=== PATIENT | male | born 1965 | race Caucasian/White ===

== ENCOUNTER 2024-05-26 08:58 | Inpatient (IN) | payer MEDICARE, OTHER ==
[~2024-05-26] VITALS: Ht 175.3 cm; Wt 114.7 kg
[~2024-05-26 08:58] MED LIST: FURO40TA4 PO; NOR10T GT
--- NOTE | 2024-05-26 09:15 | ED.PDOC ---
SOB-HPI HPI Comments 58 year old male presents to the ED with chief complaint of SOB. Patient reports that he has been experiencing SOB with associated non-productive cough, bilateral leg swelling and redness for the past 4 days. Patient relays that he has been taking cold medicine with no relief noted. Patient states he has had an open wound to his right lower leg for the past 18 years, only keeping it wrapped, but was told he needed his leg amputated a long time ago. Patient denies any chest pain, dizziness, N/V/D, fever, chills, or numbness. Time Seen by MD: 09:08 Primary Care Provider: NONE Reviewed notes: Nurses Notes, Medications, Allergies Information Source: Patient Mode of Arrival: Ambulatory Severity: Moderate Timing: Days Duration: Since onset Context: At Rest, With Light Exertion PE Risk Factors: None History of: COPD, CHF Prehospital treatment: Other (Cold medicine) Modifying Factors: Exertion Associated Signs and Symptoms: Cough, Leg Swelling If cough with SOB: Non-Productive Past Medical History PAST MEDICAL HISTORY: CHF, CKF, COPD, HTN, Denies Surgical History: Denies all surgeries Family History Family History: Reviewed,noncontributory to illness, Unobtainable Social History Smoker: Cigarettes Alcohol: Denies ETOH Use Drugs: Denies Drug Use Lives In: Home Constitutional: denies: chills, diaphoresis, fatigue, fever, malaise, sweats, weakness, others EENTM: denies: blurred vision, double vision, ear bleeding, ear discharge, ear drainage, ear pain, ear ringing, eye pain, eye redness, hearing loss, mouth pain, mouth swelling, nasal discharge, nose bleeding, nose congestion, nose pain, photophobia, tearing, throat pain, throat swelling, voice changes, others Respiratory: reports: cough, shortness of breath, SOB with excertion; denies: hemoptysis, orthopnea, SOB at rest, stridor, wheezing, others Cardiovascular: reports: edema; denies: chest pain, dizzy spells, diaphoresis, Dyspnea on exertion, irregular heart beat, left arm pain, lightheadedness, palpitations, PND, syncope, others Gastrointestinal: denies: abdomen distended, abdominal pain, blood streaked bowels, constipated, diarrhea, dysphagia, difficulty swallowing, hematemesis, melena, nausea, poor appetite, poor fluid intake, rectal bleeding, rectal pain, vomiting, others Genitourinary: denies: burning, dysuria, flank pain, frequency, hematuria, incontinence, penile discharge, penile sore, pain, testicle pain, testicle swelling, urgency, others Neurological: denies: dizziness, fainting, headache, left sided numbness, left sided weakness, numbness, paresthesia, pre-existing deficit, right sided numbness, right sided weakness, seizure, speech problems, tingling, tremors, weakness, others Musculoskeletal: denies: back pain, gout, joint pain, joint swelling, muscle pain, muscle stiffness, neck pain, others Integumetry: reports: rash (Bilateral legs), wounds (Left leg wound); denies: bruises, change in color, change in hair/nails, dryness, laceration, lesions, lumps, others Allergic/Immunocompromised: denies: Difficulty Healing, Frequent Infections, Hives, Itching, others Hematologic/Lymphatic: denies: anemia, blood clots, easy bleeding, easy bruising, swollen glands, others Endocrine: denies: excessive hunger, excessive sweating, excessive thirst, excessive urination, flushing, intolerance to cold, intolerance to heat, unexplained weight gain, unexplained weight loss, others Psychiatric: denies: anxiety, bipolar disorder, depression, hopeless, panic disorder, schizophrenia, sleepless, suicidal, others All Other Systems: Reviewed and Negative Physical Exam General Appearance: No Apparent Distress, Normal, Other (Ill-appearing) HEENT: Normal ENT Inspection, PERRL/EOMI Neck: Full Range of Motion, Non-Tender, Normal, Normal Inspection Respiratory: Chest Non-Tender, Lungs Clear, No Accessory Muscle Use, Other (Non-productive cough, coarse breath sounds, tachypneic) Cardiovascular: No Edema, No JVD, No Murmur, No Gallop, Normal Peripheral Pulses, Tachycardia Breast Exam: Deferred Gastrointestinal: No Organomegaly, Non Tender, No Pulsatile Mass, Normal Bowel Sounds, Soft Genitalia: Deferred Pelvic: Deferred Rectal: Deferred Extremities: No calf tenderness, Normal capillary refill, Normal range of motion, Non-tender, Other (2+ pitting edema to bilateral lower extremities, Diffuse erythema to bilateral lower extremities.) Musculoskeletal : Apperance: Normal Neurologic: Alert, quality lead II-XII nml as Tested, No Motor Deficits, Normal Affect, Normal Mood, No Sensory Deficits Cerebellar Function: Normal Reflexes: Normal Skin: Dry, Normal Color, Warm Lymphatic: No Adenopathy Was a procedure done? Was a procedure done?: No Differential Dx Differential Diagnosis: Cardiogenic Shock, CHF, COPD, Hypertension, Hyperventilation, Panic Attack, PSVT, Pulmonary Embolism X-Ray, Labs, Meds, VS Vital Signs Date Time Temp Pulse Resp B/P (MAP) Pulse Ox O2 Delivery O2 Flow Rate FiO2 05/26/24 09:40 24 93 Room Air* 0 21 05/26/24 09:10 115 05/26/24 09:05 97.9 52 28 155/105 (122) 93 145/101 (116) Lab Test 05/26/24 10:55 05/26/24 10:00 Range/Units Troponin I High Sensitivity Pending 203 *H </=54 ng/L White Blood Count 10.9 H 4.4-10.8 10^3/uL Red Blood Count 5.07 4.5-5.90 10^6/uL Hemoglobin 15.0 13.5-17.5 g/dL Hematocrit 46.3 41.0-53.0 % Mean Corpuscular Volume 91.2 80.0-100.0 fL Mean Corpuscular Hemoglobin 29.6 28.0-32.0 pg Mean Corpuscular Hemoglobin Concent 32.5 32.0-36.0 g/dL Red Cell Distribution Width 14.1 11.8-14.3 % Platelet Count 306 140-450 10^3/uL Mean Platelet Volume 7.6 6.9-10.8 fL Neutrophils (%) (Auto) 85.1 H 37.0-80.0 % Lymphocytes (%) (Auto) 6.7 L 10.0-50.0 % Monocytes (%) (Auto) 7.0 0.0-12.0 % Eosinophils (%) (Auto) 0.3 0.0-7.0 % Basophils (%) (Auto) 0.9 0.0-2.0 % Neutrophils # (Auto) 9.2 H 1.6-8.6 10 ^3/uL Lymphocytes # (Auto) 0.7 0.4-5.4 10 ^3/uL Monocytes # (Auto) 0.8 0-1.3 10 ^3/uL Eosinophils # (Auto) 0 0-0.8 10 ^3/uL Basophils # (Auto) 0.1 0-0.2 10 ^3/uL Nucleated Red Blood Cells 0.0 % Sodium Level 135 L 136-145 mmol/L Potassium Level 4.7 3.5-5.1 mmol/L Chloride Level 102 98-107 mmol/L Carbon Dioxide Level 27 20-31 mmol/L Anion Gap 6 5-15 Blood Urea Nitrogen 24 H 9-23 mg/dL Creatinine 1.23 0.700-1.30 mg/dL Glomerular Filtration Rate Calc 69 >90 mL/min BUN/Creatinine Ratio 19.5 10.0-20.0 Serum Glucose 152 H 74-106 mg/dL Lactic Acid Level 1.5 0.4-2.0 mmol/L Calcium Level 10.0 8.7-10.4 mg/dL B-Type Natriuretic Peptide Pending Current Medications Medications (Trade) Dose Ordered Sig/Rosalie Route Start Time Stop Time Status Last Admin Albuterol (Ventolin Medneb) 5 mg ONCE ONCE NEB 05/26/24 09:15 05/26/24 09:16 DC 05/26/24 09:40 Ipratropium [place] (Atrovent Medneb) 0.5 mg ONCE ONCE NEB 05/26/24 09:15 05/26/24 09:16 DC 05/26/24 09:39 Time of 1ST Reevaluation: 10:08 Reevaluation 1ST: Unchanged Patient Education/Counseling: Diagnosis, Treatment Family Education/Counseling: No Family Present Departure 1 Departure Time of Disposition: 11:06 (Patient presented with chest pain that was concerning for possible STEMI, ACS, PE, Pneumonia, Muscle Strain, COPD, Dissection. Data: 1. I ordered and reviewed the result of at least 3 labs including a CBC, BMP, and Troponin. 2. I independently interpreted the following tests: EKG which shows sinus tachycardia and Chest X-ray which shows pulmonary vascular congestion.Risk:This patient has a high risk of morbidity due to further diagnostic testing or treatment and may suffer from an acute cardiac or respiratory disorder. Workup reveals concern for CHF exacerbation or NSTEMI and patient should be admitted for further workup and possible expert consultation. ) Impression: Primary Impression: Acute chest pain Additional Impressions: Elevated troponin Acute on chronic heart failure with reduced ejection fraction (HFrEF, <= 40%) and combined systolic and diastolic dysfunction Acute respiratory distress Disposition: ADMITTED INPATIENT Admit to: Tele Condition: Guarded Critical Care Note Critical Care Time?: Yes Critical care comment: Respiratory distress Authorized and Performed by: Koko Downs MD Total critical care time: Approximately 42 minutes Due to a high probability of clinically significant, life threatening deterioration, the patient required my highest level of preparedness to intervene emergently and I personally spent this critical care time directly and personally managing the patient. This critical care time included obtaining a history; examining the patient; pulse oximetry; ordering and review of studies; arranging urgent treatment with development of a management plan; evaluation of patient's response to treatment; frequent reassessment; and, discussions with other providers. This critical care time was performed to assess and manage the high probability of imminent, life-threatening deterioration that could result in multi-organ failure. It was exclusive of separately billable procedures and treating other patients and teaching time. Please see my other sections and the rest of the note for further information on patient assessment and treatment. Stability Stability form required: No Heart Score Heart Score: Heart Score Response (Comments) Value History N/A 0 EKG N/A 0 Age N/A 0 Risk Factors N/A 0 Troponin N/A 0 Total 0 I personally scribed for KOKO DOWNS MD ([email or web address]) on 05/26/24 at 09:15. Electronically submitted by Manuel Beck ([email or web address]). KOKO DOWNS MD May 26, 2024 09:15
[2024-05-26] MEDS: IPRATROPIUM BROM 0.5 MG/2.5ML INH SOL NEB ONE (09:39)
[2024-05-26 09:40] VITALS: BP 161/98; PULSE 116; RESP 24; TEMP 97.8; O2SAT 93
[2024-05-26] MEDS: ALBUTEROL SULF 2.5 MG/0.5ML(0.5%) NEB SOLN NEB ONE (09:40)
[2024-05-26 10:32] LABS: Basophils # (auto) 0.1 10 ^3/uL (0-0.2); Basophils % (auto) 0.9 % (0.0-2.0); Eosinophils # (auto) 0 10 ^3/uL (0-0.8); Eosinophils % (auto) 0.3 % (0.0-7.0); Hematocrit 46.3 % (41.0-53.0); Lymphocytes # (auto) 0.7 10 ^3/uL (0.4-5.4); Lymphocytes % (auto) 6.7 % (10.0-50.0); Mean Corpuscular Hemoglobin 29.6 pg (28.0-32.0); Mean Corpuscular Hgb Conc. 32.5 g/dL (32.0-36.0); Mean Corpuscular Volume 91.2 fL (80.0-100.0); Monocytes # (auto) 0.8 10 ^3/uL (0-1.3); Neutrophils # (auto) 9.2 10 ^3/uL (1.6-8.6); Neutrophils % (auto) 85.1 % (37.0-80.0); Platelet Count (auto) 306 10^3/uL (140-450); Red Blood Cells 5.07 10^6/uL (4.5-5.90); Red Cell Distribution Width 14.1 % (11.8-14.3); White Blood Cell 10.9 10^3/uL (4.4-10.8)
[2024-05-26 10:37] LABS: Chloride 102 mmol/L (98-107); Potassium 4.7 mmol/L (3.5-5.1); Sodium 135 mmol/L (136-145)
[2024-05-26 10:38] LABS: Anion Gap 6 (5-15); Carbon Dioxide 27 mmol/L (20-31)
--- NOTE | 2024-05-26 10:40 | DVH ---
XY CHEST PORTABLE, HISTORY: sob COMPARISON: None None TECHNICAL DATA: 1 view of the chest was obtained. FINDINGS: Lines and tubes: None Cardiomediastinal silhouette: normal Pulmonary vasculature: prominent Lung expansion: normal Lung airspace: normal Lung interstitium: normal Pleura: normal Pneumothorax: no Bones: Unremarkable Other: no IMPRESSION: Mild pulmonary congestion.
[2024-05-26 10:43] LABS: BUN/Creatinine Ratio 19.5 (10.0-20.0); Blood Urea Nitrogen 24 mg/dL (9-23); Glucose 152 mg/dL (74-106)
[2024-05-26] MEDS ORDERED: NITROGLYCERIN 0.4 MG SL TAB SL PRN (11:15)
[2024-05-26] MEDS ORDERED: MORPHINE SULFATE INJ 2 MG/ml SYRG IV PRN (11:15)
[2024-05-26] MEDS ORDERED: HYDROcodone-ACET 10/325MG TAB PO PRN (11:15)
[2024-05-26] MEDS ORDERED: ONDANSETRON HCL 4 MG/2 ML VIAL IV PRN (11:15)
[2024-05-26] MEDS ORDERED: DEXTROSE (50%) 50ML SYRG IV PRN (11:30)
[2024-05-26] MEDS: ASPirin 325 MG TAB PO ONE (12:12)
[2024-05-26] MEDS: MAALOX PLUS or MAALOX 30 ML PO ONE (12:13)
[2024-05-26] MEDS: AZITHROMYCIN 250 MG TAB PO ONE (12:13)
[2024-05-26 15:40] VITALS: PULSE 111; RESP 33; O2SAT 97
[2024-05-26] MEDS: CLOPIDOGREL BISULFATE 75 MG TAB PO ONE (16:00)
[2024-05-26] MEDS: ACCU-CHEK COMFORT CURVE STRIP VI SCH (16:00)
[2024-05-26] MEDS: ONDANSETRON HCL 4 MG/2 ML VIAL IV ONE (16:00)
[2024-05-26] MEDS: InsuLIN REG 1unit/0.01ml Soln (100units/ml) SC SCH (16:00)
[2024-05-26] MEDS: FUROSEMIDE 40 MG/4 ML VIAL IV ONE (16:01)
[2024-05-26] MEDS: ACETAMINOPHEN 325 MG TAB PO ONE (16:03)
[2024-05-26] MEDS: cefTRIAXone 1GM/50ML D5W 50 ML IV SCH (16:06)
[2024-05-26 16:19] LABS: Rapid Influenza A Negative (Negative); Rapid Influenza B Negative (Negative)
[2024-05-26 16:20] LABS: COVID19 ANTIGEN SOFIA FIA NEGATIVE (NEGATIVE)
[2024-05-26 19:30] VITALS: PULSE 109; RESP 31; O2SAT 95
--- NOTE | 2024-05-26 19:31 | ECG ---
[facility] Test Date: 2024-05-26 Test Time: 09:10:58 Pat Name: RAH MEIER Department: er Room: 0286T Gender: M [employer]: ig : [id number] Requested By: KOKO FATIMA Order Number: [id number] Reading MD: Jhon Monreal Measurements Intervals [place] Rate: 115 P: 57 NM: 152 QRS: -58 QRSD: 121 T: 94 QT: 348 QTc: 482 Interpretive Statements Sinus tachycardia Probable left atrial enlargement Left bundle branch block Electronically Signed On 05-28-2024 17:33:54 PST by Jhon Monreal Please click the below link to view image of tracing.
[2024-05-26 20:17] VITALS: PULSE 108; RESP 27; O2SAT 93
[2024-05-26] MEDS: ALBUTEROL SULF 2.5 MG/0.5ML(0.5%) NEB SOLN NEB PRN (20:17)
[2024-05-26] MEDS: IPRATROPIUM BROM 0.5 MG/2.5ML INH SOL NEB PRN (20:17)
[2024-05-26 20:27] VITALS: PULSE 108; RESP 18; O2SAT 97
[2024-05-26] MEDS: HYDROcodone-ACET 10/325MG TAB PO PRN (21:31)
[2024-05-26] MEDS: FUROSEMIDE 40 MG/4 ML VIAL IV SCH (21:38)
[2024-05-26] MEDS: ATORVASTATIN 20 MG TAB PO SCH (21:38)
[2024-05-26] MEDS: ENOXAPARIN SOD 120 MG/0.8 ML SYRINGE SC SCH (21:41)
[2024-05-26] MEDS: LORazepam 0.5 MG TAB PO PRN (21:41)
[2024-05-26] MEDS: CARVEDILOL 3.125 MG TAB PO SCH (22:00)
[2024-05-26] MEDS ORDERED: ENOXAPARIN SOD 100 MG/1 ML SYRINGE SC SCH (22:00)
[2024-05-26] MEDS: ZOLPIDEM TARTRATE 5 MG TAB PO PRN (22:35)
[2024-05-26 22:55] VITALS: BP 140/101; PULSE 104; PULSE 108; RESP 19; RESP 36; TEMP 98; O2SAT 93
[2024-05-26] MEDS: ACETAMINOPHEN 325 MG TAB PO PRN (23:37)
[2024-05-27] VITALS (12 sets, daily range): BP systolic 126–152; BP diastolic 83–102; PULSE 64–110; RESP 17–25; TEMP 97.5–100.1; O2SAT 91–100
[2024-05-27 06:39] LABS: Basophils # (auto) 0.1 10 ^3/uL (0-0.2); Basophils % (auto) 1.1 % (0.0-2.0); Eosinophils # (auto) 0.1 10 ^3/uL (0-0.8); Eosinophils % (auto) 0.6 % (0.0-7.0); Hematocrit 40.4 % (41.0-53.0); Hemoglobin 13.5 g/dL (13.5-17.5); Lymphocytes # (auto) 0.8 10 ^3/uL (0.4-5.4); Lymphocytes % (auto) 9.4 % (10.0-50.0); Mean Corpuscular Hemoglobin 29.8 pg (28.0-32.0); Mean Corpuscular Hgb Conc. 33.3 g/dL (32.0-36.0); Mean Corpuscular Volume 89.4 fL (80.0-100.0); Monocytes # (auto) 0.8 10 ^3/uL (0-1.3); Monocytes % (auto) 9.4 % (0.0-12.0); Neutrophils # (auto) 6.6 10 ^3/uL (1.6-8.6); Neutrophils % (auto) 79.5 % (37.0-80.0); Nucleated Red Blood Cells % 0.1 %; Platelet Count (auto) 286 10^3/uL (140-450); Red Blood Cells 4.52 10^6/uL (4.5-5.90); Red Cell Distribution Width 14.1 % (11.8-14.3); White Blood Cell 8.3 10^3/uL (4.4-10.8)
[2024-05-27 06:51] LABS: Anion Gap 6 (5-15); Calcium 9.5 mg/dL (8.7-10.4); Carbon Dioxide 27 mmol/L (20-31); Chloride 104 mmol/L (98-107); Potassium 4.1 mmol/L (3.5-5.1); Sodium 137 mmol/L (136-145)
[2024-05-27 06:57] LABS: BUN/Creatinine Ratio 22.4 (10.0-20.0); Blood Urea Nitrogen 26 mg/dL (9-23); Glucose 139 mg/dL (74-106)
[2024-05-27] MEDS: ASPirin 81 mg TAB PO SCH (09:35)
[2024-05-27] MEDS: DOCUSATE SOD 100 MG CAP PO SCH (09:35)
[2024-05-27] MEDS: CLOPIDOGREL BISULFATE 75 MG TAB PO SCH (09:41)
[2024-05-27] MEDS ORDERED: AZITHROMYCIN 250 MG TAB PO SCH (10:00)
[2024-05-27] MEDS ORDERED: SPIR25TA8 PO (10:01)
[2024-05-27] MEDS ORDERED: ATOR-507 PO (10:01)
[2024-05-27] MEDS ORDERED: CARV6.2551 PO (10:01)
[2024-05-27] MEDS: LISINOPRIL 5 MG TAB PO SCH (10:17)
[2024-05-27 11:54] LABS: Magnesium 2.1 mg/dL (1.6-2.6)
--- NOTE | 2024-05-27 13:25 | DVHPN2 ---
Reviewed: Care Plan, H&P, Labs, Medications, Previous Orders, Radiology Changes from previous H/P or p: No Changes Objective Vitals Vital Signs Date Time Temp Pulse Resp B/P (MAP) Pulse Ox O2 Delivery O2 Flow Rate FiO2 05/27/24 10:39 88 134/85 05/27/24 09:27 24 100 05/27/24 09:21 Nasal Cannula* 3 32 05/27/24 09:00 97.5 97.5 Intake/Output Intake and Output 05/27/24 07:00 Intake Total 550 ml Output Total 800 ml Balance -250 ml Intake Oral 500 ml IV Total 50 ml Output Urine Total 800 ml # Voids 2 Medications Current Medications Medications Dose Ordered Sig/Rosalie Route Start Time Stop Time Status Last Admin Dose Admin Aspirin 81 mg DAILY PO 05/27/24 10:00 05/27/24 09:35 81 MG Clopidogrel Bisulfate 75 mg DAILY PO 05/27/24 10:00 05/27/24 09:41 75 MG Atorvastatin Calcium 80 mg HS PO 05/26/24 22:00 05/26/24 21:38 80 MG Carvedilol 6.25 mg Q12HR PO 05/26/24 22:00 05/27/24 09:39 6.25 MG Acetaminophen 650 mg Q6HP PRN PO 05/26/24 11:15 05/26/24 23:37 650 MG Zolpidem Tartrate 5 mg QHSP PRN PO 05/26/24 11:15 05/26/24 22:35 5 MG Lorazepam 0.5 mg Q6HP PRN PO 05/26/24 11:15 05/26/24 21:41 0.5 MG Docusate Sodium 100 mg DAILY PO 05/27/24 10:00 05/27/24 09:35 100 MG Enoxaparin Sodium 100 mg Q12HR SC 05/26/24 22:00 UNV Ondansetron HCl 4 mg Q4HP PRN IV 05/26/24 11:15 Lisinopril 10 mg DAILY PO 05/27/24 10:00 05/27/24 10:17 10 MG Nitroglycerin 0.4 mg Q5MINP PRN SL 05/26/24 11:15 Morphine Sulfate 2 mg Q30M PRN IV 05/26/24 11:15 Ceftriaxone Sodium 50 ml @ 100 mls/hr DAILY IV 05/26/24 11:15 05/27/24 09:42 100 MLS/HR Furosemide 40 mg BID IV 05/26/24 22:00 05/27/24 09:40 40 MG Azithromycin 500 mg DAILY PO 05/27/24 10:00 Hold Albuterol 2.5 mg Q4HWA PRN NEB 05/26/24 11:15 05/27/24 09:21 2.5 MG Ipratropium [place] 0.5 mg Q4HWA PRN NEB 05/26/24 11:15 05/27/24 09:20 0.5 MG Diagnostic Test (Pha) 1 strip IQ4HR 05/26/24 12:00 05/27/24 11:52 1 STRIP Insulin Human Regular IQ4HR SC 05/26/24 12:00 05/27/24 11:51 3 UNITS Dextrose 50 ml UD PRN IV 05/26/24 11:30 Enoxaparin Sodium 110 mg Q12HR SC 05/26/24 22:00 05/27/24 11:14 110 MG Acetaminophen/ Hydrocodone Bitart 1 tab Q6HPRN PRN PO 05/26/24 21:15 05/27/24 12:57 1 TAB Laboratory Results Laboratory Tests 05/27/24 05:22 Chemistry Test 05/27/24 05:22 Calcium Level 9.5 mg/dL (8.7-10.4) Magnesium Level 2.1 mg/dL (1.6-2.6) Lipid panel Test 05/27/24 05:22 Cholesterol Level 77 mg/dL (< 200) HDL Cholesterol 39 mg/dL (40-59) L Triglycerides Level 43 mg/dL (< 150) HgA1c, TSH Test 05/27/24 05:22 Hemoglobin A1c 7.1 % A1C (<5.7) H Thyroid Stimulating Hormone (TSH) 2.23 uIU/mL (0.55-4.78) Microbiology Microbiology Date/Time Source Procedure Growth Status 05/26/24 10:00 Blood Blood Culture - Preliminary NO GROWTH AFTER 24 HOURS OF INCUBATION. Resulted Labs and/or images reviewed: Labs reviewed by me, Image(s) reviewed by me Assessment/Plan Assessment/Plan Non ST-elevation ND with a troponin of 250: Treatment per ACS protocol cardiology consult Acute on Chronic hypoxic respiratory failure: Oxygen by nasal cannula Acute CHF exacerbation: Lasix cardiology consult for Hypercholesterolemia Hypotension Acute COPD exacerbation Chronic kidney disease Chronic right foot wound: Vancomycin wound consult Time spent 65 minutes Patient is full code Advanced care planning 20 minutes Plan discussed with: Patient My Orders Orders - PHUONG BUSH MD Procedure Category Date Status Time * Cardiology Consult CONS 05/27/24 Transmitted 13:21 Date of Service: May 27, 2024 Billing Provider: PHUONG BUSH MD Common Visit Codes: [id number] CARE 30-74 MIN PHUONG BUSH MD May 27, 2024 13:25
--- NOTE | 2024-05-27 13:44 | DVHINCON2 ---
Date Seen: May 27, 2024 Referring Physician MD Vince Reason for Consultation NSTEMI History of Present Illness This is a 58-year-old male patient who presents to the emergency room with chief complaint of bilateral lower extremity edema and shortness of breath. The patient came to the emergency room for further evaluation. Cardiology has now been consulted for NSTEMI. At the time of assessment, the patient denies any chest pain or palpitations. He does report shortness of breath with dyspnea on exertion as well as orthopnea. The patient admits to a previous diagnosis of congestive heart failure but states that he has never followed up with a museum exhibit technician in the outpatient setting. Patient's two daughters at bedside report that the patient is noncompliant when it comes to following up with any doctors outside of the hospital. Initial twelve electrocardiogram reveals sinus tachycardia with left bundle branch block. Initial troponin level of 203ng/L with flat trend thereafter. Initial BNP level of 1316.97pg/mL. Significant past medical history includes congestive heart failure, hypertension, dyslipidemia, type 2 diabetes mellitus, COPD, and morbid obesity. The patient is also noted to have an open wound to his right lower extremity. The patient reports he has been told that that leg needs to be amputated, but he has refused to seek any further medical attention. He reports that the wound in his right leg has been open since 2005. Past Medical History Past medical history reviewed. No other significant than mentioned above. Past Surgical History Nasal reconstruction Testicular torsion status post orchidectomy Family History: Patient reports no known family medical history. Family History Family history reviewed. Social History Patient reports a 37 pack-year history, states he smokes one pack per day Patient admits to previous history of methamphetamine abuse, states last time he used was two years ago Patient denies any alcohol use Allergies: Coded Allergies: Vancomycin (Verified Allergy, Severe, 05/17/13) Home Meds Reported Medications Carvedilol (Carvedilol) 6.25 Mg Tab, 1 TAB PO BID, #180 TAB 1 Refill 05/27/24 Furosemide (Furosemide) 40 Mg Tab, 1 TAB PO BID for 90 Days 05/27/24 Spironolactone (Spironolactone) 25 Mg Tab, 1 TAB PO DAILY, #90 TAB 1 Refill 05/27/24 Atorvastatin Calcium (Lipitor) 40 Mg Tab, 1 TAB PO DAILY, #30 TAB 5 Refills 05/27/24 Hydrocodone-Acetaminophen ([place] 10/325MG) 1 Tab Tb, 10 MG GT 05/17/13 Home Meds Home medications reviewed. Current Medications Current Medications Medications (Trade) Dose Ordered Sig/Rosalie Route PRN Reason Start Time Stop Time Status Last Admin Aspirin 81 mg DAILY PO 05/27/24 10:00 05/27/24 09:35 Clopidogrel Bisulfate (Plavix) 75 mg DAILY PO 05/27/24 10:00 05/27/24 09:41 Atorvastatin Calcium (Lipitor) 80 mg HS PO 05/26/24 22:00 05/26/24 21:38 Carvedilol (Coreg Tablet) 6.25 mg Q12HR PO 05/26/24 22:00 05/27/24 09:39 Docusate Sodium (Colace Capsule) 100 mg DAILY PO 05/27/24 10:00 05/27/24 09:35 Enoxaparin Sodium (Lovenox) 100 mg Q12HR SC 05/26/24 22:00 UNV Lisinopril (Zestril Tablet) 10 mg DAILY PO 05/27/24 10:00 05/27/24 10:17 Furosemide (Lasix Injection) 40 mg BID IV 05/26/24 22:00 05/27/24 09:40 Azithromycin (Zithromax Tablet) 500 mg DAILY PO 05/27/24 10:00 Hold Enoxaparin Sodium (Lovenox) 110 mg Q12HR SC 05/26/24 22:00 05/27/24 11:14 Acetaminophen/ Hydrocodone Bitart ([place] 10/325MG Tab) 1 tab Q6HPRN PRN PO PAIN SCALE 7 THRU 10 05/26/24 21:15 05/27/24 12:57 Review of Systems Constitutional: No symptom reported Ears, Nose, & Throat: No symptom reported Eyes: No symptom reported Neurological: No symptoms reported Pulmonary/Respiratory: Shortness of breath Cardiovascular: Bilateral lower extremity edema Gastrointestinal: No symptom reported Genitourinary: No symptom reported Musculoskeletal: No symptom reported Skin: No symptom reported Psychiatric: No symptom reported Endocrine: No symptom reported Hematologic/Lymphatic: No symptom reported Vital Signs Vital Signs Date Time Temp Pulse Resp B/P (MAP) Pulse Ox O2 Delivery O2 Flow Rate FiO2 05/27/24 10:39 88 134/85 05/27/24 09:27 24 100 05/27/24 09:21 Nasal Cannula* 3 32 05/27/24 09:00 97.5 97.5 Physical Exam General Appearance: Cooperative. Morbid obesity Head Exam: Normal inspection Neck Exam: Normal inspection. Pulmonary/Respiratory: Clear, bilateral breaths sounds. Cardiovascular/Chest: Regular rate and rhythm. Peripheral Pulses: 2+ Radial (R). 2+ Radial (L). Abdominal Exam: Normal bowel sounds. Ankle Exam: Nonpitting edema Lower extremities: Bilateral nonpitting edema Neuro/Mental Status: A/OX4, coherent. Thoughts/Psych: Normal thought pattern. Appropriate mood and affect. Good judgment and insight. Appearance: No acute distress. Skin Exam: Right lower extremity open wound. Discoloration to bilateral lower extremities. Thick, scaly skin to bilateral lower extremity. Patient refuses to allow anyone to remove his socks, unable to assess for pedal pulses. Labs/Diagnostic Data Labs Test 05/27/24 11:41 05/27/24 05:22 05/26/24 15:53 05/26/24 15:39 Range/Units POC Glucose 162 H 70-106 mg/dl White Blood Count 8.3 4.4-10.8 10^3/uL Red Blood Count 4.52 4.5-5.90 10^6/uL Hemoglobin 13.5 13.5-17.5 g/dL Hematocrit 40.4 #L 41.0-53.0 % Mean Corpuscular Volume 89.4 80.0-100.0 fL Mean Corpuscular Hemoglobin 29.8 28.0-32.0 pg Mean Corpuscular Hemoglobin Concent 33.3 32.0-36.0 g/dL Red Cell Distribution Width 14.1 11.8-14.3 % Platelet Count 286 140-450 10^3/uL Mean Platelet Volume 7.3 6.9-10.8 fL Neutrophils (%) (Auto) 79.5 37.0-80.0 % Lymphocytes (%) (Auto) 9.4 L 10.0-50.0 % Monocytes (%) (Auto) 9.4 0.0-12.0 % Eosinophils (%) (Auto) 0.6 0.0-7.0 % Basophils (%) (Auto) 1.1 0.0-2.0 % Neutrophils # (Auto) 6.6 1.6-8.6 10 ^3/uL Lymphocytes # (Auto) 0.8 0.4-5.4 10 ^3/uL Monocytes # (Auto) 0.8 0-1.3 10 ^3/uL Eosinophils # (Auto) 0.1 0-0.8 10 ^3/uL Basophils # (Auto) 0.1 0-0.2 10 ^3/uL Nucleated Red Blood Cells 0.1 % Sodium Level 137 136-145 mmol/L Potassium Level 4.1 3.5-5.1 mmol/L Chloride Level 104 98-107 mmol/L Carbon Dioxide Level 27 20-31 mmol/L Anion Gap 6 5-15 Blood Urea Nitrogen 26 H 9-23 mg/dL Creatinine 1.16 0.700-1.30 mg/dL Glomerular Filtration Rate Calc 74 >90 mL/min BUN/Creatinine Ratio 22.4 H 10.0-20.0 Serum Glucose 139 H 74-106 mg/dL Hemoglobin A1c 7.1 H <5.7 % A1C Calcium Level 9.5 8.7-10.4 mg/dL Magnesium Level 2.1 1.6-2.6 mg/dL Triglycerides Level 43 < 150 mg/dL Cholesterol Level 77 < 200 mg/dL LDL Cholesterol 27 < 100 mg/dL HDL Cholesterol 39 L 40-59 mg/dL Thyroid Stimulating Hormone (TSH) 2.23 0.55-4.78 uIU/mL Troponin I High Sensitivity 199 *H </=54 ng/L Influenza Type A Antigen Negative Negative Influenza Type B Antigen Negative Negative SARS-CoV-2 Antigen (Rapid) Negative NEGATIVE Test 05/26/24 10:00 Range/Units Lactic Acid Level 1.5 0.4-2.0 mmol/L B-Type Natriuretic Peptide 1316.97 0-100 pg/mL Microbiology Date/Time Source Procedure Growth Status 05/26/24 10:00 Blood Blood Culture - Preliminary NO GROWTH AFTER 24 HOURS OF INCUBATION. Resulted Assessment Acute on chronic decompensated HFrEF, NYHA class III NSTEMI type II secondary to above Hypertension Dyslipidemia Aortic valve, mitral valve, and tricuspid valve regurgitation, mild degree COPD Type 2 diabetes mellitus, uncontrolled (Hgb A1c 7.1%) Morbid obesity, class 3 Tobacco use Remote history of methamphetamine use Medical noncompliance Plan/Recommendation We will continue following plan/recommendations (Dr. Perez): * Transthoracic echocardiogram reveals EF 30% with global wall hypokinesia and severely dilated left and right ventricle * Initiate guideline directed medical therapy for CHF as tolerated * Will hold spironolactone at this time given borderline potassium levels * Strict intake and output, daily weights, maintain fluid restriction * Preload and afterload reduction * Lipid-lowering agent * Risk factor modifications, counseled * Adherence to medication regimen * Adherence to outpatient follow up's * Dietary and lifestyle changes Patient seen and examined at bedside with . We will continue with conservative medical management at this time. Thank you for allowing us to care for this patient. Please call with any questions or concerns. Critical care ti me spent: 44 minutes This medical document was created using an electronic medical record system with voice recognition software and computerized dictation system. Although this document has been carefully reviewed, there might still be some phonetic and typographical errors. Occasional wrong-word or ``sound-alike substitutions may have occurred due to the inherent limitations of voice recognition software. These areas are purely typographical due to imperfections of the software programs and do not reflect any compromise in the patient's medical care. Please read the chart carefully and recognize, using context, where these substitutions have occurred. Plan discussed with: Patient Date of Service: May 27, 2024 Billing Provider: GUTIERREZ PEREZ MD Cardiology Common Codes: [id number] INP/OBS CARE (High) Cardiology Consultation Codes: [id number] CONSULT <45MIN YANDEL COOK May 27, 2024 13:44
--- NOTE | 2024-05-27 15:37 | DVHSR ---
APPROVED REPORT EXAM: Two-dimensional and M-mode echocardiogram with Doppler and color Doppler. Blood Pressure: 136/87 mmHg INDICATION Chest Pain RISK FACTORS Height: 5'9", Weight: 245 DIMENSIONS LVDd6.1 (3.8-5.7cm)LA (2D)5.0 (1.9-4.0cm)Aortic Root3.7 (2.0-3.7cm) LVDs5.2 (2.5-4.0cm)LA (MM) (1.9-4.0cm)Aortic Cusp Exc2.0 (1.5-2.0cm) EF (%) 30.0 (55-70%)Rt. Atrium4.7 (1.9-4.0cm)Asc. Aorta3.7 cm IVSd1.3 (0.7-1.1cm)RV (D)4.8 (1.8-2.4cm) PWd1.6 (0.7-1.1cm) Mitral Valve MitralMitral Stenosis E wave0.96m/sMV Mean GR.mmHg A wave0.71m/sMV Peak GR.mmHg E/A ratio1.42D MVAcm2 DECEL [id number] 1/2 [place] Aortic Valve Aortic ValveAortic Stenosis V10.93m/Dave Mean GR.7mmHg V21.59m/Dave Peak GR.10mmHg LVOT Diameter2.4 (1.8-2.4cm)Doppler AVA2.64cm2 2D AVA1.91cm2 Pulmonic Valve V21.00m/s Tricuspid Valve TR Velocity2.40m/s [id number] Other Information Quality : Technically LimitedRhythm : Technically limited study due to body habitus. Conclusion Severely dilated left ventricle. Severely reduced left ventricular systolic function estimated eject ion fraction 30%. There is global wall hypokinesia. Severely dilated right ventricle. Severely reduced right ventricular systolic function. Moderately dilated right and left atria. The aortic valve is thickened and sclerotic there is mild aortic valve regurgitation. There is mild mitral valve regurgitation. There is mild tricuspid valve regurgitation. The pulmonary valve is grossly normal. No pericardial effusion.
[2024-05-28] VITALS (16 sets, daily range): BP systolic 118–142; BP diastolic 67–85; PULSE 77–109; RESP 18–25; TEMP 98.5–100.2; O2SAT 90–99
[2024-05-28 09:47] LABS: Basophils # (auto) 0.1 10 ^3/uL (0-0.2); Basophils % (auto) 0.9 % (0.0-2.0); Eosinophils # (auto) 0.1 10 ^3/uL (0-0.8); Eosinophils % (auto) 1.2 % (0.0-7.0); Hematocrit 40.1 % (41.0-53.0); Hemoglobin 13.2 g/dL (13.5-17.5); Lymphocytes % (auto) 13.5 % (10.0-50.0); Mean Corpuscular Hemoglobin 29.6 pg (28.0-32.0); Mean Corpuscular Volume 89.5 fL (80.0-100.0); Monocytes # (auto) 0.9 10 ^3/uL (0-1.3); Monocytes % (auto) 12.5 % (0.0-12.0); Neutrophils # (auto) 5.4 10 ^3/uL (1.6-8.6); Neutrophils % (auto) 71.9 % (37.0-80.0); Nucleated Red Blood Cells % 0.1 %; Platelet Count (auto) 276 10^3/uL (140-450); Red Blood Cells 4.48 10^6/uL (4.5-5.90); Red Cell Distribution Width 14.6 % (11.8-14.3); White Blood Cell 7.6 10^3/uL (4.4-10.8)
[2024-05-28 09:56] LABS: Chloride 100 mmol/L (98-107); Potassium 4.4 mmol/L (3.5-5.1); Sodium 134 mmol/L (136-145)
[2024-05-28 09:57] LABS: Anion Gap 5 (5-15); Carbon Dioxide 29 mmol/L (20-31)
[2024-05-28 09:58] LABS: Calcium 9.1 mg/dL (8.7-10.4)
[2024-05-28 10:02] LABS: BUN/Creatinine Ratio 22.5 (10.0-20.0); Blood Urea Nitrogen 27 mg/dL (9-23)
[2024-05-28 10:04] LABS: Glucose 246 mg/dL (74-106)
[2024-05-28] MEDS: EMPAGLIFLOZIN 10 MG TAB PO SCH (10:24)
--- NOTE | 2024-05-28 12:24 | DVHPN2 ---
Reviewed: Care Plan, H&P, Labs, Medications, Previous Orders, Radiology Changes from previous H/P or p: No Changes Objective Vitals Vital Signs Date Time Temp Pulse Resp B/P (MAP) Pulse Ox O2 Delivery O2 Flow Rate FiO2 05/28/24 10:25 125/75 05/28/24 10:24 104 05/28/24 10:15 25 94 05/28/24 10:09 Nasal Cannula* 4 36 05/28/24 09:00 98.5 98.5 Intake/Output Intake and Output 05/28/24 07:00 Intake Total 834 ml Output Total 225 ml Balance 609 ml Intake Oral 784 ml IV Total 50 ml Output Urine Total 225 ml # Voids 5 Medications Current Medications Medications Dose Ordered Sig/Rosalie Route Start Time Stop Time Status Last Admin Dose Admin Atorvastatin Calcium 80 mg HS PO 05/26/24 22:00 05/27/24 21:34 80 MG Carvedilol 6.25 mg Q12HR PO 05/26/24 22:00 05/28/24 10:24 6.25 MG Acetaminophen 650 mg Q6HP PRN PO 05/26/24 11:15 05/26/24 23:37 650 MG Zolpidem Tartrate 5 mg QHSP PRN PO 05/26/24 11:15 05/26/24 22:35 5 MG Lorazepam 0.5 mg Q6HP PRN PO 05/26/24 11:15 05/26/24 21:41 0.5 MG Docusate Sodium 100 mg DAILY PO 05/27/24 10:00 05/27/24 09:35 100 MG Enoxaparin Sodium 100 mg Q12HR SC 05/26/24 22:00 UNV Ondansetron HCl 4 mg Q4HP PRN IV 05/26/24 11:15 Lisinopril 10 mg DAILY PO 05/27/24 10:00 05/28/24 10:22 10 MG Nitroglycerin 0.4 mg Q5MINP PRN SL 05/26/24 11:15 Morphine Sulfate 2 mg Q30M PRN IV 05/26/24 11:15 Ceftriaxone Sodium 50 ml @ 100 mls/hr DAILY IV 05/26/24 11:15 05/28/24 10:25 100 MLS/HR Furosemide 40 mg BID IV 05/26/24 22:00 05/28/24 10:25 40 MG Azithromycin 500 mg DAILY PO 05/27/24 10:00 Hold Albuterol 2.5 mg Q4HWA PRN NEB 05/26/24 11:15 05/28/24 10:09 2.5 MG Ipratropium [place] 0.5 mg Q4HWA PRN NEB 05/26/24 11:15 05/28/24 10:09 0.5 MG Diagnostic Test (Pha) 1 strip IQ4HR 05/26/24 12:00 05/28/24 10:28 1 STRIP Insulin Human Regular IQ4HR SC 05/26/24 12:00 05/28/24 10:38 90 UNITS Dextrose 50 ml UD PRN IV 05/26/24 11:30 Enoxaparin Sodium 110 mg Q12HR SC 05/26/24 22:00 05/28/24 10:27 110 MG Acetaminophen/ Hydrocodone Bitart 1 tab Q6HPRN PRN PO 05/26/24 21:15 05/28/24 10:25 1 TAB Empaglifozin 10 mg DAILY PO 05/28/24 10:00 05/28/24 10:24 10 MG Albuterol 2.5 mg Q4HR NEB 05/28/24 14:00 Ipratropium [place] 0.5 mg Q4HR NEB 05/28/24 14:00 Laboratory Results Laboratory Tests 05/28/24 09:17 Chemistry Test 05/28/24 09:17 Calcium Level 9.1 mg/dL (8.7-10.4) Microbiology Microbiology Date/Time Source Procedure Growth Status 05/26/24 10:00 Blood Blood Culture - Preliminary NO GROWTH AFTER 48 HOURS OF INCUBATION. Resulted Labs and/or images reviewed: Labs reviewed by me, Image(s) reviewed by me Assessment/Plan Assessment/Plan Non ST-elevation [place] with a troponin of 250: Type 2 Treatment per ACS protocol cardiology consult Acute on Chronic hypoxic respiratory failure: Oxygen by nasal cannula Acute systolic CHF exacerbation: Ejection fraction 19 % Lasix cardiology consult for Dr.AlHejily jimenez, placed on Jardiance Aortic valve mitral valve and tricuspid regurgitation Hypercholesterolemia Hypotension Acute COPD exacerbation Chronic current smoker: Counseling Chronic kidney disease Chronic right foot wound: Vancomycin wound consult Remote history of meth use Medication noncompliance Time spent 65 minutes Patient is full code Prognosis very poor Ex Erma [phone] at bedside e Plan discussed with: Patient My Orders Orders - PHUONG BUSH MD Procedure Category Date Status Time * Cardiology Consult CONS 05/27/24 Transmitted 13:21 * Wound Consult CONS 05/27/24 Transmitted Albuterol Medneb PHA 05/28/24 In Process (Ventolin Medneb) 14:00 Ipratropium Medneb PHA 05/28/24 In Process (Atrovent Medneb) 14:00 Date of Service: May 28, 2024 Billing Provider: PHUONG BUSH MD Common Visit Codes: [id number] CARE 30-74 MIN PHUONG BUSH MD May 28, 2024 12:24
[2024-05-28] MEDS: IPRATROPIUM BROM 0.5 MG/2.5ML INH SOL NEB SCH (14:29)
[2024-05-28] MEDS: ALBUTEROL SULF 2.5 MG/0.5ML(0.5%) NEB SOLN NEB SCH (14:29)
[2024-05-28] MEDS ORDERED: InsuLIN REG 1unit/0.01ml Soln (100units/ml) SC SCH (17:00)
[2024-05-28] MEDS ORDERED: ACCU-CHEK COMFORT CURVE STRIP VI SCH (17:00)
--- NOTE | 2024-05-30 08:11 | DVHDS2 ---
Discharge Summary Date of Admission May 26, 2024 at 11:08 Date of Discharge: May 28, 2024 Admitting Diagnosis Chest pain Wounds: None Labs/Diagnostic Data: Laboratory Results Test 05/28/24 11:49 05/28/24 09:17 05/27/24 05:22 05/26/24 15:53 POC Glucose 189 mg/dl (70-106) White Blood Count 7.6 10^3/uL (4.4-10.8) Red Blood Count 4.48 10^6/uL (4.5-5.90) Hemoglobin 13.2 g/dL (13.5-17.5) Hematocrit 40.1 % (41.0-53.0) Mean Corpuscular Volume 89.5 fL (80.0-100.0) Mean Corpuscular Hemoglobin 29.6 pg (28.0-32.0) Mean Corpuscular Hemoglobin Concent 33.0 g/dL (32.0-36.0) Red Cell Distribution Width 14.6 % (11.8-14.3) Platelet Count 276 10^3/uL (140-450) Mean Platelet Volume 7.2 fL (6.9-10.8) Neutrophils (%) (Auto) 71.9 % (37.0-80.0) Lymphocytes (%) (Auto) 13.5 % (10.0-50.0) Monocytes (%) (Auto) 12.5 % (0.0-12.0) Eosinophils (%) (Auto) 1.2 % (0.0-7.0) Basophils (%) (Auto) 0.9 % (0.0-2.0) Neutrophils # (Auto) 5.4 10 ^3/uL (1.6-8.6) Lymphocytes # (Auto) 1.0 10 ^3/uL (0.4-5.4) Monocytes # (Auto) 0.9 10 ^3/uL (0-1.3) Eosinophils # (Auto) 0.1 10 ^3/uL (0-0.8) Basophils # (Auto) 0.1 10 ^3/uL (0-0.2) Nucleated Red Blood Cells 0.1 % Sodium Level 134 mmol/L (136-145) Potassium Level 4.4 mmol/L (3.5-5.1) Chloride Level 100 mmol/L (98-107) Carbon Dioxide Level 29 mmol/L (20-31) Anion Gap 5 (5-15) Blood Urea Nitrogen 27 mg/dL (9-23) Creatinine 1.20 mg/dL (0.700-1.30) Glomerular Filtration Rate Calc 71 mL/min (>90) BUN/Creatinine Ratio 22.5 (10.0-20.0) Serum Glucose 246 mg/dL (74-106) Calcium Level 9.1 mg/dL (8.7-10.4) Hemoglobin A1c 7.1 % A1C (<5.7) Magnesium Level 2.1 mg/dL (1.6-2.6) Triglycerides Level 43 mg/dL (< 150) Cholesterol Level 77 mg/dL (< 200) LDL Cholesterol 27 mg/dL (< 100) HDL Cholesterol 39 mg/dL (40-59) Thyroid Stimulating Hormone (TSH) 2.23 uIU/mL (0.55-4.78) Troponin I High Sensitivity 199 ng/L (</=54) Test 05/26/24 15:39 05/26/24 10:00 Influenza Type A Antigen Negative (Negative) Influenza Type B Antigen Negative (Negative) SARS-CoV-2 Antigen (Rapid) Negative (NEGATIVE) Lactic Acid Level 1.5 mmol/L (0.4-2.0) B-Type Natriuretic Peptide 1316.97 pg/mL (0-100) Other Laboratory Tests 05/28/24 09:17 Brief Hx & Hospital Course: 58-year-old male with multiple medical problems including hypertension hypercholesterolemia chronic current smoker chronic kidney disease chronic right foot and leg infection history of meth use noncompliant history of congestive heart failure came in for chest pain. Troponin was elevated to 50. [place] to be type [address]-elevation [place] treated per ACS protocol cardiology consult by Dr.Al Chamberlain. Placed on Lasix Jardiance comorbid conditions treated appropriately placed on vancomycin for right foot infection. While awaiting further Consults/Reason for consult Cardiology Dr.Al Chamberlain Operations or Procedures None Condition at Discharge: Poor Final Diagnosis/Problems List Non ST-elevation [place] with a troponin of 250: Type 2 Treatment per ACS protocol cardiology consult Acute on Chronic hypoxic respiratory failure: Oxygen by nasal cannula Acute systolic CHF exacerbation: Ejection fraction 19 % Lasix cardiology consult for appreciated, placed on Jardiance Aortic valve mitral valve and tricuspid regurgitation Hypercholesterolemia Hypotension Acute COPD exacerbation Chronic current smoker: Counseling Chronic kidney disease Chronic right foot wound: Vancomycin wound consult Remote history of meth use Medication noncompliance Discharge Disposition: AMA Discharge Instruct/Medications Diet comment: Not applicable Patient left AMA Activity: Light activity Activity comment: Not applicable Patient left AMA Follow Up/Referral: Not applicable Patient left AMA Medications: Not applicable Patient left AMA 35 (Time taken for discharge summary 35 minutes) Discharge Statement: "Patient was advised to return to the ER or call 911 if any headaches, dizziness, shortness of breath, chest pain, abdominal pain, bleeding, fevers, or worsening of medical condition. Patient was counseled about treatment plan, medications, possible side effects, patientverbalized understanding. All questions were answered to the best of my ability. This discharge took greater then 30 minutes in planning, reviewing documentation, counseling the patient, and discussing with other team members." ASSESSMENT ASSESSMENT Hospital Course Left AMA Assessment Date of Service: May 28, 2024 Billing Provider: PHUONG BUSH MD Common Visit Codes: [id number] DISCH DAY >30min PHUONG BUSH MD May 30, 2024 08:11
== END 2024-05-28 15:30 | disposition left against medical advice (07) | DRG 280 ==
LOC: ER 08:58 → TELE 11:08 → TELE-WESTW 23:07
PROVIDERS: ADMIT Hospitalist; ATTEND Family Medicine
DX: I21.4 Non-ST elevation (NSTEMI) myocardial infarction (principal); I50.23 Acute on chronic systolic (congestive) heart failure; J96.21 Acute and chronic respiratory failure with hypoxia; I13.0 Hypertensive heart and chronic kidney disease with heart failure and stage 1 through stage 4 chronic kidney disease, or unspecified chronic kidney disease; J44.1 Chronic obstructive pulmonary disease with (acute) exacerbation; Z20.822 Contact with and (suspected) exposure to COVID-19; E78.00 Pure hypercholesterolemia, unspecified; N18.9 Chronic kidney disease, unspecified; F17.210 Nicotine dependence, cigarettes, uncomplicated; E11.22 Type 2 diabetes mellitus with diabetic chronic kidney disease; E66.01 Morbid (severe) obesity due to excess calories; I08.1 Rheumatic disorders of both mitral and tricuspid valves; I44.7 Left bundle-branch block, unspecified; Z91.199 Patient's noncompliance with other medical treatment and regimen due to unspecified reason; Z91.148 Patient's other noncompliance with medication regimen for other reason; Z68.37 Body mass index [BMI] 37.0-37.9, adult; Z88.8 Allergy status to other drugs, medicaments and biological substances
CPT/HCPCS: 36415; 71045; 80048; 80061; 82962; 83036; 83605; 83735; 83880; 84443; 84484; 85025; 87040; 87426; 87804; 93005; 93306; 94640; 99291; G0378; J1815; J2405